=== PATIENT | female | born 1960 ===

== ENCOUNTER 2018-07-03 08:48 | Emergency (ER) | payer BC, OTHER ==
[2018-07-03 09:04] VITALS: BP 154/71
--- NOTE | 2018-07-03 09:45 | ED ---
Throat Pain/Nasal Congestion - HPI Summary HPI Summary: 58 yo WF p/w cough congestion PND x 2 days, denies f/c - History of Current Complaint Chief Complaint: UCRespiratory Time Seen by Provider: 07/03/18 09:02 Hx Obtained From: Patient Onset/Duration: Lasting Days Severity: Moderate - Allergies/Home Medications Allergies/Adverse Reactions: Allergies Allergy/AdvReac Type Severity Reaction Status Date / Time spider bite Allergy Swelling Uncoded 09/08/12 14:05 Home Medications: Home Medications Naproxen Sodium [Aleve] 440 mg PO ONCE PRN 07/03/18 [History Confirmed 07/03/18] PMH/Surg Hx/FS Hx/Imm Hx Previously Healthy: Yes Endocrine/Hematology History: Denies: Hx Diabetes, Hx Thyroid Disease Cardiovascular History: Denies: Hx Hypertension Respiratory History: Denies: Hx Asthma, Hx Chronic Obstructive Pulmonary Disease (COPD) GI History: Denies: Hx Ulcer - Cancer History Cancer Type, Location and Year: cervical - Surgical History Surgery Procedure, Year, and Place: tubal ligation Infectious Disease History: No Infectious Disease History: Denies: Hx Clostridium Difficile, Hx Hepatitis, Hx Human Immunodeficiency Virus (HIV), Hx of Known/Suspected MRSA, Hx Shingles, Hx Tuberculosis, Hx Known/ Suspected VRE, Hx Known/Suspected VRSA, History Other Infectious Disease, Traveled Outside the [place] in Last 30 Days - Social History Alcohol Use: None Substance Use Type: Reports: None Smoking Status (MU): Heavy Every Day Tobacco Smoker Type: Cigarettes Amount Used/How Often: 10-12 cigs per day Have You Smoked in the Last Year: Yes Review of Systems - ROS Summary Review of Systems Summary: Constitutional: Negative Eyes: Negative ENT: Negative- SEE HPI Cardiovascular: Negative Respiratory: Negative Gastrointestinal: Negative Genitourinary: Negative Musculoskeletal: Negative Neurological: Negative Psychological: Normal All Other Systems Reviewed And Are Negative: Yes All Other Systems Reviewed And Are Negative: Yes Physical Exam - Summary Physical Exam Summary: Vital Signs Reviewed: Yes Skin: Positive: Warm Head/Face: Positive: Normal Head/Face Inspection Eyes: Positive: Normal ENT: Positive: nasal congestion, PND, NEG sinus tenderness, throat erythema without exudates Neck: Positive: Supple Respiratory/Lung Sounds: Positive: Clear to Auscultation Cardiovascular: Positive: Normal, RRR, S1, S2 Abdomen Description: Positive: Nontender Musculoskeletal: Positive: Normal Neurological: Positive: Normal Psychiatric: Positive: Normal, Affect/Mood Appropriate Vital Signs On Initial Exam: Initial Vitals Temp Pulse Resp BP Pulse Ox 36.7 C 89 18 154/71 97 07/03/18 08:59 07/03/18 08:59 07/03/18 08:59 07/03/18 08:59 07/03/18 08:59 Diagnostics - Vital Signs Vital Signs Temp Pulse Resp BP Pulse Ox 07/03/18 08:59 36.7 C 89 18 154/71 97 - Laboratory Lab Results: Lab Results 07/03/18 Range/Units 09:09 Group A Strep Rapid Negative (Negative) Lab Statement: Any lab studies that have been ordered have been reviewed, and results considered in the medical decision making process. EENT Course/Dx - Course Assessment/Plan: URI- Mucinex D - Diagnoses Provider Diagnoses: URI, acute Discharge - Sign-Out/Discharge Documenting (check all that apply): Patient Departure All imaging exams completed and their final reports reviewed: Yes - Discharge Plan Condition: Stable Disposition: HOME Prescriptions: Guaifenesin/Pseudoephedrne HCl [Mucinex D ER 600-60 mg Tablet] 1 each PO BID 10 Days #20 [id number] Patient Education Materials: Upper Respiratory Infection (ED) - Billing Disposition and Condition Condition: STABLE Disposition: Home
== END 2018-07-03 09:52 | disposition home or self-care (01) ==
LOC: UCEAST 08:48
DX: J06.9 Acute upper respiratory infection, unspecified (principal); F17.210 Nicotine dependence, cigarettes, uncomplicated; Z91.09 Other allergy status, other than to drugs and biological substances
CPT/HCPCS: 87651; 99202; G0463